=== PATIENT | female | born 1985 | race Caucasian/White ===

== ENCOUNTER 2020-01-01 12:26 | Emergency (ER) | payer MEDICAID, OTHER ==
[~2020-01-01] VITALS: Ht 175.3 cm; Wt 90.0 kg
[~2020-01-01 12:26] MED LIST: LIDOcaine 1% 30ml preserv. free vial ONE; NO HOME MEDS
[2020-01-01 12:49] VITALS: BP 146/114
[2020-01-01] MEDS ORDERED: CLIN150C8 PO (14:24)
[2020-01-01] MEDS ORDERED: ondansetron 4mg rapidly disintigrating tab PO ONE (14:25)
[2020-01-01] MEDS ORDERED: clindamycin 150mg capsule PO ONE (14:25)
[2020-01-01] MEDS ORDERED: TETanus/Pertussis (Acell)/Diphther VAC/PF (Tdap-Adult) 0.5ml syringe IMVAC ONE (14:25)
[2020-01-01] MEDS ORDERED: bacitracin 15gm ointment TP ONE (14:25)
== END 2020-01-01 15:29 | disposition home or self-care (01) ==
LOC: ER 12:26
DX: S01.311A Laceration without foreign body of right ear, initial encounter (principal); F15.90 Other stimulant use, unspecified, uncomplicated; F12.90 Cannabis use, unspecified, uncomplicated; Z56.0 Unemployment, unspecified; Z88.0 Allergy status to penicillin; Z79.2 Long term (current) use of antibiotics; W45.8XXA Other foreign body or object entering through skin, initial encounter; Y93.89 Activity, other specified; Y92.89 Other specified places as the place of occurrence of the external cause; Y99.8 Other external cause status
CPT/HCPCS: 12011; 90471; 90715; 99284; J2001

== ENCOUNTER 2020-02-17 03:41 | Inpatient (IN) | payer MEDICAID, OTHER ==
[~2020-02-17] VITALS: Ht 172.7 cm; Wt 77.3 kg
[~2020-02-17 03:41] MED LIST changes: +CLIN150C8 PO; -LIDOcaine 1% 30ml preserv. free vial ONE
[2020-02-17] MEDS ORDERED: ondansetron/PF 4mg/2ml inj IV ONE (04:35)
[2020-02-17 04:43] LABS: CLARITY,URINE SLIGHTLY CLOUDY (Clear); COLOR,URINE YELLOW (Yellow); GLUCOSE, URINE NEGATIVE (Neg); KETONES,URINE NEGATIVE (Neg); LEUKOCYTE ESTERASE ,URINE SMALL (Neg); NITRITES, URINE POSITIVE (Neg); OCCULT BLOOD,URINE TRACE-INTACT (Neg); PROTEIN,URINE TRACE mg/dl (Neg)
[2020-02-17 04:45] LABS: UA COLLECTION TYPE CLN CATCH MIDSTREAM
[2020-02-17 04:46] LABS: URINE HCG NEGATIVE (NEG)
[2020-02-17 04:49] LABS: URINE AMPHETAMINE SCREEN POSITIVE (Neg); URINE BARBITUATE SCREEN NEGATIVE (Neg); URINE BENZODIAZEPINES SCREEN NEGATIVE (Neg); URINE CANNABINOID SCREEN POSITIVE (Neg); URINE COCAINE SCREEN NEGATIVE (Neg); URINE METHADONE SCREEN NEGATIVE (Neg); URINE OPIATE SCREEN POSITIVE (Neg); URINE PHENCYCLIDINE SCREEN NEGATIVE (Neg)
[2020-02-17 04:50] LABS: BACTERIA,URINE 4+ /HPF (Neg); SQUAMOUS EPITHELIAL CELL,UR MODERATE /LPF (FEW)
[2020-02-17] MEDS ORDERED: acetaminophen 325mg tablet PO STA (05:24)
[2020-02-17] MEDS ORDERED: normal saline 1000ML IV soln IVB ONE (05:25)
[2020-02-17] MEDS ORDERED: morphine 2 MG/ML inj. syringe IV PRN (05:25)
[2020-02-17] MEDS ORDERED: ketorolac trometh. 30mg/ml inj. IV ONE (05:25)
[2020-02-17] MEDS ORDERED: CefTRIAXone 2gm/D5W 50ml 50 ML IV ONE (05:25)
[2020-02-17] MEDS ORDERED: LORazepam 2 mg/ml vial IV ONE (05:25)
[2020-02-17] MEDS ORDERED: morphine 4 MG/ML inj SYRINge IV ONE (05:25)
[2020-02-17] MEDS ORDERED: CefTRIAXone inj 2,000 MG in normal saline 100ml IV soln 100 ML IV ONE (05:30)
[2020-02-17 05:45] LABS: BASOPHILS # (AUTO) 0.1 X10'3 (0-0.2); BASOPHILS % (AUTO) 0.5 % (0-1); EOSINOPHILS # (AUTO) 0.1 X10'3 (0-0.9); EOSINOPHILS % (AUTO) 0.3 % (0-6); HEMATOCRIT 36.8 % (35.0-45.0); HEMOGLOBIN 11.9 g/dl (12.0-16.0); LYMPHOCYTES # (AUTO) 0.9 X10'3 (1.1-4.8); LYMPHOCYTES % (AUTO) 4.8 % (21-51); MEAN CORPUSCULAR HEMOGLOBIN 28.5 PG (27.0-31.0); MEAN CORPUSCULAR HGB CONC 32.4 g/dL (33.0-36.5); MEAN CORPUSCULAR VOLUME 88.1 FL (78-98); MEAN PLATELET VOLUME 8.3 FL (7.4-10.4); NEUTROPHILS # (AUTO) 17.4 X10'3 (1.8-7.7); NEUTROPHILS % (AUTO) 89.4 % (42-75); PLATELET COUNT 266 X10'3 (140-440); RED BLOOD COUNT 4.17 X10'6 (4.20-5.60); RED CELL DISTRIBUTION WIDTH 15.2 % (11.5-14.5); WHITE BLOOD COUNT 19.5 X10'3 (4.5-11.0)
[2020-02-17 05:52] LABS: ALANINE AMINOTRANSFERASE 20 U/L (12-78); ALBUMIN/GLOBULIN RATIO 0.8 (1.1-1.5); ALKALINE PHOSPHATASE 111 IU/L (46-116); ANION GAP 11 (8-16); ASPARTATE AMINO TRANSFERASE 16 U/L (10-37); BILIRUBIN,TOTAL 0.6 MG/DL (0.1-1.0); BLOOD UREA NITROGEN 9 MG/DL (7-18); BUN/CREATININE RATIO 14.3 (6.6-38.0); CALCIUM 8.3 MG/DL (8.5-10.1); CHLORIDE 103 MMOL/L (99-107); CREATINE KINASE 78 U/L (26-192); CREATININE 0.63 MG/DL (0.40-0.90); ETHANOL < 0.010 GM/DL (0.0-0.010); GLUCOSE 106 MG/DL (70-104); LIPASE 60 U/L (73-393); MAGNESIUM 1.6 MG/DL (1.5-2.4); POTASSIUM 3.5 MMOL/L (3.5-5.1); SODIUM 136 MMOL/L (135-145); TOTAL CARBON DIOXIDE 22.2 MMOL/L (24-32); TOTAL PROTEIN 6.7 G/DL (6.4-8.2); eGFR > 90 ML/MIN
--- NOTE | 2020-02-17 06:00 | NUR ---
Patient in room [facility]. I have received report from REY Srivastava and had the opportunity to ask questions and assume patient care. Addendum: 02/17/20 at 1830 by Skyla Garduno RN addendum, wrong patient.
[2020-02-17] MEDS ORDERED: potassium CL 10mEq/100ml bag 100 ML IV PRN ×2 (08:10)
[2020-02-17] MEDS ORDERED: magnesium 4gm in 100ml NS 100 ML IV PRN (08:10)
[2020-02-17] MEDS ORDERED: ondansetron/PF 4mg/2ml inj IV PRN (08:10)
[2020-02-17] MEDS ORDERED: acetaminophen 325mg tablet PO PRN (08:10)
[2020-02-17] MEDS ORDERED: magnesium Cl slow-release 64mg tablet PO PRN (08:10)
[2020-02-17] MEDS ORDERED: magnesium 2GM in 50ml NS 50 ML IV PRN (08:10)
[2020-02-17] MEDS ORDERED: potassium Cl 20 mEq SR tablet PO PRN ×2 (08:10)
--- NOTE | 2020-02-17 08:36 | NUR ---
pt has no home meds.pt stated that she takes tylenol or motrin prn no other meds.
[2020-02-17 10:00] VITALS: BP 116/75
--- NOTE | 2020-02-17 10:06 | NUR ---
Patient has declined to secure any valuables at this time
[2020-02-17] MEDS: normal saline 1000ml 1,000 ML IV SCH ×2 (10:14→20:51)
[2020-02-17] MEDS: acetaminophen 325mg tablet PO PRN (13:15)
[2020-02-17 13:23] VITALS: BP 102/65
[2020-02-17] MEDS ORDERED: HYDROcodone/acetaminophen 5mg/325mg tablet PO PRN (14:30)
[2020-02-17] MEDS: HYDROcodone/acetaminophen 5mg/325mg tablet PO PRN ×2 (15:02→20:50)
--- NOTE | 2020-02-17 18:00 | NUR ---
Problems reprioritized. Patient report given, questions answered & plan of care reviewed with REY Srivastava. Addendum: 02/17/20 at 1831 by Skyla Garduno RN Addendum; REY David
--- NOTE | 2020-02-17 19:12 | NUR ---
Patient in room [facility]. I have received report from Skyla LE and had the opportunity to ask questions and assume patient care.
[2020-02-17] MEDS: K and/or MAG REPLACEMENT MC SCH (19:48)
[2020-02-17 20:00] VITALS: BP 106/62
[2020-02-17] MEDS: docusate sod 100mg capsule PO SCH (20:50)
[2020-02-18] VITALS: BP 113/64
[2020-02-18] MEDS: normal saline 1000ml 1,000 ML IV SCH ×2 (04:06→08:05)
[2020-02-18] MEDS: HYDROcodone/acetaminophen 5mg/325mg tablet PO PRN ×2 (05:40→12:49)
--- NOTE | 2020-02-18 05:59 | NUR ---
Problems reprioritized. Patient report given, questions answered & plan of care reviewed with Skyla LE.
[2020-02-18 07:00] VITALS: BP 132/76
[2020-02-18 07:47] LABS: BASOPHILS # (AUTO) 0.1 X10'3 (0-0.2); BASOPHILS % (AUTO) 0.4 % (0-1); EOSINOPHILS # (AUTO) 0.3 X10'3 (0-0.9); EOSINOPHILS % (AUTO) 1.4 % (0-6); HEMATOCRIT 35.6 % (35.0-45.0); HEMOGLOBIN 11.5 g/dl (12.0-16.0); LYMPHOCYTES # (AUTO) 1.4 X10'3 (1.1-4.8); LYMPHOCYTES % (AUTO) 7.1 % (21-51); MEAN CORPUSCULAR HEMOGLOBIN 28.9 PG (27.0-31.0); MEAN CORPUSCULAR HGB CONC 32.5 g/dL (33.0-36.5); MEAN PLATELET VOLUME 7.9 FL (7.4-10.4); MONOCYTES # (AUTO) 0.9 X10'3 (0-0.9); MONOCYTES % (AUTO) 4.5 % (2-12); NEUTROPHILS % (AUTO) 86.6 % (42-75); PLATELET COUNT 279 X10'3 (140-440); RED BLOOD COUNT 3.99 X10'6 (4.20-5.60); RED CELL DISTRIBUTION WIDTH 15.1 % (11.5-14.5); WHITE BLOOD COUNT 19.6 X10'3 (4.5-11.0)
[2020-02-18] MEDS ORDERED: levoFLOXACIN-Levaquin 500mg/D5 100 ML IV SCH (08:00)
[2020-02-18] MEDS: K and/or MAG REPLACEMENT MC SCH (08:00)
[2020-02-18] MEDS: docusate sod 100mg capsule PO SCH (08:05)
[2020-02-18] MEDS: acetaminophen 325mg tablet PO PRN (08:14)
--- NOTE | 2020-02-18 08:15 | NUR ---
while assessing patient, patient asked for help clipping bra, which I asked if she was comfortable having me assist with and confirm that she was comfortable, the attempt was unsuccessful as clip appears to be dysfunctional, patient was encouraged to use gown provided with.
[2020-02-18 08:25] LABS: ALBUMIN 2.5 G/DL (3.4-5.0); ANION GAP 8 (8-16); BLOOD UREA NITROGEN 11 MG/DL (7-18); BUN/CREATININE RATIO 15.9 (6.6-38.0); CALCIUM 8.2 MG/DL (8.5-10.1); CHLORIDE 106 MMOL/L (99-107); CREATININE 0.69 MG/DL (0.40-0.90); GLUCOSE 110 MG/DL (70-104); MAGNESIUM 1.9 MG/DL (1.5-2.4); POTASSIUM 3.2 MMOL/L (3.5-5.1); SODIUM 139 MMOL/L (135-145); TOTAL CARBON DIOXIDE 24.6 MMOL/L (24-32); eGFR > 90 ML/MIN
--- NOTE | 2020-02-18 09:54 | NUR ---
Patient encouraged to keep gown on by multiple staff.
[2020-02-18 12:00] VITALS: BP 106/63
[2020-02-18] MEDS ORDERED: magnesium hydroxide 30ml (MOM) UD suspension PO ONE (12:50)
--- NOTE | 2020-02-18 12:52 | NUR ---
Patient asked if they can leave at will. Explained to patient while they are not being detained it is advised to remain in the hospitals care until their acute problems have subsided as patient problems could become worse in addition.
--- NOTE | 2020-02-18 13:28 | NUR ---
patient complained of IV pain. Inspected and flushed, insertion site looks identical to other wrist, no redness, warm, neurological function maintained distal to insertion site. PICC RN examined and flushed as well and states IV is working properly without issue.
--- NOTE | 2020-02-18 13:30 | NUR ---
Patient states would like to leave as patient is not comfortable. Patient asked what could be done to improve comfort, states something for constipation and something for sleep. Patient given MOM and MD solicited for medication to sleep in evening.
--- NOTE | 2020-02-18 17:16 | NUR ---
Patient has left AMA. Patient left with all belongings. D/mookie IV. Patient stated that she wanted to go home. when assessed why patient stated she wanted sleep medications and a social service consult. Both were solicited and in process, asked if I could do anything else while she waited and stated no she just wanted to go home. Patient educated on the risks of doing so and but continued to want to leave ama.
[2020-02-18] MEDS ORDERED: lactobacillus rhamnosus 10,000 MMU CELLS/CAPSULE PO SCH (20:00)
== END 2020-02-18 17:19 | disposition left against medical advice (07) | DRG 690 ==
LOC: ER 03:42 → ED HOLD 08:06 → SUR 3N 09:55
PROVIDERS: ADMIT Internal Medicine; ATTEND Internal Medicine
DX: N39.0 Urinary tract infection, site not specified (principal); F15.10 Other stimulant abuse, uncomplicated; K59.00 Constipation, unspecified; F12.90 Cannabis use, unspecified, uncomplicated; Z53.29 Procedure and treatment not carried out because of patient's decision for other reasons; Z88.0 Allergy status to penicillin
CPT/HCPCS: 36415; 76775; 76937; 80048; 80053; 80305; 80320; 81001; 81025; 82550; 83605; 83690; 83735; 84145; 85025; 87040; 87081; 99285; G0378; J0696; J1885; J1956; J2060; J2270; J2405; J7030